=== PATIENT | female | born 1980 | race Two or more races ===

== ENCOUNTER → 2018-07-06 | Outpatient (CLI) | payer BC ==
[~2018-07-06] MED LIST: IOHEXOL 240 MG/ML 50ML VIAL. PO ONE; IOHEXOL 300 MG/ML 100ML VIAL. IV ONE
--- NOTE | 2018-07-06 17:19 | KCIC ---
Examination CT pelvis without and with IV contrast HISTORY: Solid ovarian mass TECHNIQUE: Axial CT images of the pelvis were performed with IV contrast. Coronal and sagittal reformats are performed. Exposure: One or more of the following individualized dose reduction techniques were utilized for this examination: 1. Automated exposure control 2. Adjustment of the mA and/or kV according to patient size 3. Use of iterative reconstruction technique. FINDINGS: The urinary bladder is mildly distended. There is a round hyperdensity measuring 2.3 x 2.2 cm in the right adnexa appears similar on pre- and postcontrasted images. Feces and gas noted in the colon. No evidence of lytic bony destructive lesion. Impression: 1. A 2.3 cm hyperdensity identified in the right adnexa could be a right ovarian lesion or mass or hyperdense cyst. Consider MRI pelvis and/or ultrasound for further evaluation. Electronically signed by: Luis Wan MD (07/06/2018 3:44 PM) [id number]
== END | disposition home or self-care (01) ==
LOC: KCIC CT 10:15
PROVIDERS: ATTEND Nurse Practitioner Women's Health
DX: N83.8 Other noninflammatory disorders of ovary, fallopian tube and broad ligament (principal); N32.89 Other specified disorders of bladder
CPT/HCPCS: 72194; Q9966; Q9967